=== PATIENT | male | born 2000 | race Two or more races ===

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

== ENCOUNTER → 2024-10-26 | Outpatient (CLI) | payer BC, OTHER | LOC: M ADAMS 11:35 | PROVIDERS: ATTEND Family Medicine | DX: M54.50 Low back pain, unspecified (principal); G89.29 Other chronic pain ==